=== PATIENT | male | born 1950 | race Caucasian/White ===

== ENCOUNTER 2023-12-26 23:32 | Inpatient (IN) | payer MEDICARE, BC ==
[~2023-12-26] VITALS: Ht 175.3 cm; Wt 111.8 kg
[~2023-12-26 23:32] MED LIST: ANTIVERT 25MG25 MG PO; APIDRA100 U/ML SC; ASPI325T6 PO; ASPIRIN 32325 MG/TAB PO; ASPIRIN 81M81 MG/TA2 PO; AVANDIA4 MG PO; B-121000 MCG PO; BENICAR40 MG PO; CARDURA 8MG TAB8 MG PO; CELEBREX 200MG200 MG PO; CEPHALEXIN500 M1 PO; COREG 25MG25 MG/TAB PO; COZAAR 50MG50 MG/TAB PO; COZAAR100 MG PO; GLIMEPIRIDE4 MG PO; HCTZ 25MG25 MG PO; HYGROTON 2525 MG/TAB PO; INSULIN AS100 UNIT/2 SQ; JANUMET 1000 MG1 TAB; K-DUR20 MEQ PO; K-TAB20 PO; LANTUS SOLOS100 U/ML SC; LASIX 20MG TABL20 MG PO; LEADER NATUR1000 MCG PO; LEVEMIR100 U/ML SQ; LEVIMIR; LIPITOR20 MG PO; METFORMIN1000 MG PO; MOBIC15 MG PO; NEURONTIN600 MG/TAB PO; NORCO 325 MG-7.1 TAB PO; NORVASC 10MG10 MG PO; NOVOLIN N100 U/ML SQ; NOVOLIN R100 U/ML SQ; OZEMPIC1 MG/0.71 SQ; ROXICODONE 55 MG/TAB PO; SENOKOT S 50 MG1 TAB PO; TRICOR145 MG PO; TYLENOL 500MG500 MG PO; VITAMIN D31000 I1 PO; ZETIA10 MG PO; vitamin d3
[2023-12-26 23:52] LABS: BASO # 0.1 K/mm3 (0.0-0.2); BASO % 0.7 % (0.0-2.0); EOS # 0.1 K/mm3 (0.0-0.7); EOS % 1.2 % (0.0-4.0); GRAN # 4.1 K/mm3 (1.4-6.5); GRAN % 55.5 % (42.2-75.2); HEMATOCRIT 42.1 % (42.0-52.0); HEMOGLOBIN 14.4 g/dl (13.5-18.0); LYMPH # 2.6 K/mm3 (1.2-3.4); LYMPH % 35.5 % (20.0-51.0); MEAN CELL VOLUME 87 fl (80.0-100.0); MEAN CORPUSCULAR HEMOGLOBIN 30 pg (27-31); MEAN CORPUSCULAR HGB CONC 34 g/dl (33.0-37.0); MONO # 0.5 K/mm3 (0.1-0.6); MONO % 6.6 % (1.7-9.3); PLATELET COUNT 166 K/mm3 (130-400); RED BLOOD COUNT 4.83 M/mm3 (4.20-5.60); REDCELL DISTRIBUTION WIDTH-CV 13.7 % (11.5-14.5)
[2023-12-27] VITALS (291 sets, daily range): BP systolic 114–167; BP diastolic 61–90; PULSE 52–68; TEMP 97.8–98.5; O2SAT 83–100
[2023-12-27 00:38] LABS: PH 6.5 (5.0-8.5); URINE APPEARANCE CLEAR (CLEAR/HAZY); URINE BLOOD NEGATIVE (NEGATIVE); URINE COLOR YELLOW (YELLOW); URINE GLUCOSE 3+ (NEGATIVE); URINE KETONE 1+ (NEGATIVE); URINE NITRATE NEGATIVE (NEGATIVE); URINE PROTEIN(semi-quant) 2+ (NEGATIVE); URINE UROBILINOGEN 0.2 E.U/dL (0.2-1.0)
[2023-12-27 00:45] LABS: TRICYCLIC ANTIDEPRESS URINE NEGATIVE (NEGATIVE)
[2023-12-27 00:46] LABS: ALANINE AMINOTRANSFERASE 30 U/L (0-55); ALBUMIN 3.1 g/dL (3.4-4.8); ALKALINE PHOSPHATASE 154 U/L (40-150); ANION GAP 14 mmol/L (7-16); AST,SGOT 24 U/L (5-34); BILIRUBIN,TOTAL 0.5 mg/dL (0.2-1.2); BLOOD UREA NITROGEN 14 mg/dL (8-26); CALCIUM 9.4 mg/dL (8.4-10.2); CHLORIDE 104 mEq/L (98-107); CREATININE, serum 1.16 mg/dL (0.72-1.25); POTASSIUM 3.8 mEq/L (3.5-4.5); SODIUM 139 mEq/L (136-145); TOTAL PROTEIN 6.2 g/dl (6.2-8.1)
[2023-12-27 00:49] LABS: COLLECTION METHOD CLEAN CATCH
[2023-12-27 00:50] LABS: GLUCOSE 506 mg/dL (70-99)
[2023-12-27 00:58] LABS: TROPONIN-I 0.131 ng/mL (0.00-0.033)
[2023-12-27] MEDS ORDERED: Carvedilol 25 MG TAB PO ONE (01:00)
[2023-12-27 01:25] LABS: ALCOHOL(ethanol),MEDICAL < 10 mg/dL (0-10); SALICYLATE < 5.0 mg/dL (15.0-30.0)
[2023-12-27] MEDS ORDERED: Insulin Regular Human (NovoLIN R/HumuLIN R) IV ONE (01:30)
[2023-12-27] MEDS ORDERED: INSULIN AS100 UNIT/3 (02:03)
[2023-12-27] MEDS ORDERED: LIPITOR20 MG PO (02:05)
[2023-12-27] MEDS ORDERED: LANTUS SOLOS100 U/ML SQ ×2 (02:06→02:18)
[2023-12-27] MEDS ORDERED: NEURONTIN600 MG/TAB PO (02:07)
[2023-12-27] MEDS ORDERED: CARDURA 8MG TAB8 MG PO (02:09)
[2023-12-27] MEDS ORDERED: COZAAR100 MG PO (02:15)
[2023-12-27] MEDS ORDERED: ASPIRIN 32325 MG/TAB PO (02:18)
[2023-12-27] MEDS ORDERED: Acetaminophen 325 MG TAB PO PRN (03:30)
[2023-12-27] MEDS ORDERED: Glucagon 1 MG VIAL IM PRN (04:00)
[2023-12-27] MEDS ORDERED: Dextrose 50% Water 25 GM/50 ML SYRINGE IV PRN (04:00)
[2023-12-27] MEDS ORDERED: Insulin Lispro (HumaLOG) SQ SCH ×2 (04:00→05:04)
[2023-12-27] MEDS ORDERED: Dextrose (Glucose) 15 GM (4 x 3.75 GM) Chewable TABLET PACK PO PRN (04:00)
[2023-12-27] MEDS ORDERED: Heparin 5,000 UNITS/ML 1 ML VIAL IV PRN (04:15)
[2023-12-27] MEDS ORDERED: Heparin/D5W 250 ML IV SCH (04:15)
[2023-12-27] MEDS ORDERED: Heparin 5,000 UNITS/ML 1 ML VIAL IV ONE (04:15)
[2023-12-27 04:48] LABS: INR 1.1 (0.8-3.0); PROTHROMBIN TIME 11.5 SECONDS (9.7-12.8)
[2023-12-27 04:51] LABS: PARTIAL THROMBOPLASTIN TIME 33.9 SECONDS (26.0-37.0)
[2023-12-27] MEDS ORDERED: Carvedilol 6.25 MG TAB PO SCH (08:00)
[2023-12-27] MEDS ORDERED: Influenza Virus Vaccine, Hi-Dose Triv '24-25 (65 YR+) 0.5 ML SYRINGE IM SCH (09:00)
[2023-12-27] MEDS ORDERED: Insulin Glargine-ygfn (Lantus) SQ SCH ×3 (09:00→12:00)
[2023-12-27] MEDS ORDERED: Gabapentin 300 MG CAP PO SCH (09:00)
--- NOTE | 2023-12-27 09:08 | NUR ---
PT DENIES WANTING TO HARM HIMSELF AT THIS TIME.
--- NOTE | 2023-12-27 10:30 | NUR ---
REPORT GIVEN TO MIRIAM PEREZ ON MEDICAL FLOOR. PT TRANSPORTED VIA WHEELCHAIR TO MEDICAL ROOM 357 WITH ASSISTANCE OF PCT. PT AWARE OF POC, STATES NO QUESTIONS OR CONCERNS. HAS NOT HAD ANY CHEST PAIN OR SHORTNESS OF BREATH SINCE ADMISSION.
--- NOTE | 2023-12-27 10:42 | NUR ---
BULK FLUIDS HANDLER met with pt bedside while he was in the ICU.Pt was transfered to the floor shortly after assessment. Pt confirms PCP is Khanh Mehta and uses [facility] for pharmacy. Pt states he does have a DPOA that states jacob Cast [phone]. Pt stated he was having difficulty getting around his home so he moved to the basement of the home with no stairs and his son and his family moved in upstairs. Pt stated that he bought a car for each of his grandkids with the stipulation being they have to each provide atleast an hour a day helping him get to appointments and help with cares. Pt states that does not happen. Even though family lives upstairs, they are not an active participant in his cares. Pt reports he has has a few falls but never resulting in an injury. Pt reports he has a cane, 4 walkers, and 2 wheelchairs. BULK FLUIDS HANDLER inquired about pt physically capabilities within the home. Pt reports that he does have difficulties in the home and cannot walk very well at all. Pt states that he uses a bedside urinal at night to use the restroom but BULK FLUIDS HANDLER questions if pt can get to the restroom by himself at all. Pt reports that he is too scared to shower so he does not bathe himself at all. Pt feels like he will fall and it is too unsafe and family at home does not help. Pt reports he also wouldn't want his grandkids to have to help him shower either. Pt states he had HH after his back surgery and he did go to rehab after but he cannot remember where. PT was walking in the room to evaluate pt as BULK FLUIDS HANDLER was leaving. BULK FLUIDS HANDLER discussed rehab options to see if pt would be open to going somewhere after hospitalization. Pt is open to all rehab options as he also feels he may not be safe at home. Pt denied any concerns for physical, emotional, or financial abuse and states he does feel safe at home. D/C: SNF or IPR with HH after stay.
[2023-12-27] MEDS ORDERED: Carvedilol 25 MG TAB PO SCH ×2 (17:00)
--- NOTE | 2023-12-27 20:00 | NUR ---
Assessment complete. A&Ox3. Denies pain/nausea/shortness of breath. VS stable. Sitter is at bedside. TELE reporting SB. Left hand IV with heparin at 10ml/hr infusing without difficulty. Plan of care discussed for this shift to include meds/pain control/VS/NPO at 0000. Verbalizes understanding. Call light in reach. will monitor.
[2023-12-27] MEDS ORDERED: Atorvastatin 20 MG TAB PO SCH (21:00)
[2023-12-27] MEDS ORDERED: Losartan 50 MG TAB PO SCH (21:00)
[2023-12-27] MEDS ORDERED: Aspirin 325 MG TAB PO SCH (21:00)
[2023-12-27] MEDS ORDERED: guaiFENesin ER 600 MG **** subs to guaiFENesin 200 MG PO SCH (21:33)
--- NOTE | 2023-12-27 21:45 | NUR ---
Patient requesting something for congestion. Spoke with Sudha, REHABILITATION THERAPY AIDE-new orders received and initated.
[2023-12-28] VITALS (19 sets, daily range): BP systolic 110–165; BP diastolic 43–83; PULSE 52–64; TEMP 97.8–98.4
--- NOTE | 2023-12-28 05:18 | NUR ---
Patient had an uneventful night. Denied pain/nausea/shortness of breath. VS stable. Currently is 1:1 with a sitter due to SI. Denies current SI. Heparin gtt is infusing at 1000 units to left hand IV. Has remained NPO since 0000 for cards consult/cards eval. Will continue to monitor.
[2023-12-28 05:59] LABS: BASO # 0.1 K/mm3 (0.0-0.2); BASO % 0.6 % (0.0-2.0); EOS # 0.2 K/mm3 (0.0-0.7); EOS % 2.8 % (0.0-4.0); GRAN # 4.8 K/mm3 (1.4-6.5); GRAN % 61.4 % (42.2-75.2); HEMOGLOBIN 12.6 g/dl (13.5-18.0); LYMPH # 2.1 K/mm3 (1.2-3.4); LYMPH % 26.7 % (20.0-51.0); MEAN CELL VOLUME 85 fl (80.0-100.0); MEAN CORPUSCULAR HEMOGLOBIN 29 pg (27-31); MEAN CORPUSCULAR HGB CONC 35 g/dl (33.0-37.0); MEAN PLATELET VOLUME 9.6 fl (7.4-10.4); MONO # 0.6 K/mm3 (0.1-0.6); PLATELET COUNT 133 K/mm3 (130-400)
[2023-12-28 06:01] LABS: HEMATOCRIT 36.4 % (42.0-52.0)
[2023-12-28 06:29] LABS: CALCIUM 8.8 mg/dL (8.4-10.2); CREATININE, serum 0.81 mg/dL (0.72-1.25); POTASSIUM 3.4 mEq/L (3.5-4.5)
--- NOTE | 2023-12-28 06:53 | NUR ---
Critical troponin of 2.971 called to JAY Haley. No new orders received at this time. Bedside report given to MIRIAM Akhtar.
--- NOTE | 2023-12-28 09:25 | NUR ---
pt a&ox4 resting in bed. vss and tele in place. meds given with sips of water otherwise patient is NPO for cardiology consult. heparin gtt infusing into left hand IV at 9. suicide precautions in place with 1:1 sitter. pt denies needs at this time. call light in reach.
[2023-12-28] MEDS ORDERED: *Potassium Replacement Protocol MC SCH (09:30)
[2023-12-28] MEDS ORDERED: Clopidogrel 300 MG DOSE (75 mg x 4 tabs) PO ONE (10:00)
--- NOTE | 2023-12-28 12:45 | NUR ---
awake and watching TV, GRAYSON Garrido at bedside, nedside shift report received from MIRIAM Figueroa
--- NOTE | 2023-12-28 13:32 | NUR ---
resting in bed watching TV, INTERPERSONAL COMMUNICATIONS PROFESSOR at bedside, full assessment completed, see interventions for further info, denies needs
--- NOTE | 2023-12-28 13:48 | NUR ---
workers compensation coordinator notes pt is reccomended for post-acute rehab and also has a sitter due to suicidial ideations. ASHLEY spoke with Dr. Chau during rounding who reports pt is not medically cleared, then will get screened by [facility]. ASHLEY met with pt to provide Medicare.gov lists of SNF vs IPR. He was taken aback by the hours required for IPR and did not voice interest. He was agreeable to SNF beginning in [place]. ASHLEY emailed referrals to [facility], and [facility]. Discharge Plan: [facility] screen once cleared
--- NOTE | 2023-12-28 15:12 | NUR ---
visiting with friends, DRIVE IN THEATER ATTENDANT at bedside
--- NOTE | 2023-12-28 16:01 | NUR ---
geophysical laboratory director nurse here to take pateint for procedure, report given to nurse that he is on suicide watch and not to be left alone and to be watched at all times, she verbalizes understanding, heparin drip stopped at this time
--- NOTE | 2023-12-28 16:48 | NUR ---
remains off the unit and in the cathode ray tube salvage processor
[2023-12-28] MEDS ORDERED: Bivalirudin 250 MG in NS 50 ML IV SCH (17:49)
[2023-12-28] MEDS ORDERED: Midazolam 2 MG/2 ML VIAL IV SCH (17:50)
[2023-12-28] MEDS ORDERED: fentaNYL 50 MCG/ML 2 ML VIAL IV SCH (17:51)
[2023-12-28] MEDS ORDERED: Iohexol 350 - 100 ML VIAL INCOR ONE (17:52)
[2023-12-28] MEDS ORDERED: niCARdipine (Cath Lab) 100 MCG/ML 10 ML VIAL INCOR SCH (17:53)
[2023-12-28] MEDS ORDERED: Furosemide 40 MG/4 ML VIAL IV SCH (18:00)
--- NOTE | 2023-12-28 18:00 | NUR ---
remains off the floor and in the pharmaceutical laboratory technician
--- NOTE | 2023-12-28 18:20 | NUR ---
Guera was transferred back to medical rm 357 after LHC with JAYJAY to LAD with DR. Berkowitz. He is awake and alert, pwd with reg and unlabored respirations. dressing to rt groin is clean and dry, area is soft. cms intact distal. BS report and handoff of care to Wilma PINEDA.
[2023-12-28] MEDS ORDERED: 1/2 NS 1,000 ML IV SCH (18:30)
--- NOTE | 2023-12-28 18:30 | NUR ---
returned to room per bed from shift lab technician, awake and alert, IV infusing and placed on pump at 100ml/hr, angioseal to right stephania inplace and site is soft and no bruising noted, good pedal pulses, assisted him with ordering supper, and ESCROW MANAGER at bedside, orders reviewed with shift lab technician nurse, patient denies needs at this time
--- NOTE | 2023-12-28 19:03 | NUR ---
bedside shift report given to felix Marks was ordered, CANE PACKER at bedside,
--- NOTE | 2023-12-28 19:45 | NUR ---
Initial shift assessment done- denies pain, denies SOB, VSS, does have 1:1 sitter at bedside for suicide precautions, pt alert/oriented x4, pleasant, right groin site with femstop, dry and intact- no oozing/bleeding, site soft/no hematoma. 5cc of air removed at this time with no bleeding/oozing- pt watching TV , did have some crackers with peanut butter as a snack tonight,, using the urinal and voiding good amounts yellow urine.
--- NOTE | 2023-12-28 22:30 | NUR ---
Up to bathroom with assist, tolerated well, right groin femstop in place, no bleeding/dry and intact when back to bed, soft, no hematoma. Air has slowly been released every hour - no issues with oozing or bleeding
[2023-12-29] VITALS (13 sets, daily range): BP systolic 103–158; BP diastolic 44–85; PULSE 53–61; TEMP 97.6–98.2
--- NOTE | 2023-12-29 05:51 | NUR ---
Denies pain, Femstop removed and replaced with a gauze and tegaderm to right groin-- no oozing/bleeding- site soft with no hematoma. Pt did not get alot of sleep just due to interruptions throughout the night-- has the 1:1 sitter in the room at all times, VSS, Continues to get the IV fluids of NS at 100cc/hr.voiding good amounts of fluids-
[2023-12-29] MEDS ORDERED: Furosemide 40 MG/4 ML VIAL IV ONE ×2 (07:00→17:00)
[2023-12-29 08:29] LABS: BASO % 0.5 % (0.0-2.0); EOS # 0.2 K/mm3 (0.0-0.7); EOS % 2.3 % (0.0-4.0); GRAN # 5.3 K/mm3 (1.4-6.5); GRAN % 68.4 % (42.2-75.2); HEMATOCRIT 38.3 % (42.0-52.0); HEMOGLOBIN 12.8 g/dl (13.5-18.0); LYMPH # 1.5 K/mm3 (1.2-3.4); LYMPH % 19.1 % (20.0-51.0); MEAN CELL VOLUME 86 fl (80.0-100.0); MEAN CORPUSCULAR HEMOGLOBIN 29 pg (27-31); MEAN CORPUSCULAR HGB CONC 33 g/dl (33.0-37.0); MEAN PLATELET VOLUME 9.6 fl (7.4-10.4); MONO # 0.7 K/mm3 (0.1-0.6); MONO % 9.2 % (1.7-9.3); PLATELET COUNT 131 K/mm3 (130-400); RED BLOOD COUNT 4.47 M/mm3 (4.20-5.60); REDCELL DISTRIBUTION WIDTH-CV 14.2 % (11.5-14.5)
[2023-12-29 08:45] LABS: CALCIUM 8.7 mg/dL (8.4-10.2); CREATININE, serum 0.97 mg/dL (0.72-1.25); MAGNESIUM 1.6 mg/dL (1.6-2.6); POTASSIUM 3.5 mEq/L (3.5-4.5)
[2023-12-29] MEDS ORDERED: Clopidogrel 75 MG TAB PO SCH (09:00)
[2023-12-29] MEDS ORDERED: Magnesium Sulfate 2 GM/50 ML IV SOLN IV SCH (10:00)
[2023-12-29] MEDS ORDERED: Insulin Lispro (HumaLOG) SQ SCH (12:00)
--- NOTE | 2023-12-29 13:03 | NUR ---
electrical lineworker was informed [facility] declines pt. ASHLEY spoke with [facility] who is still reviewing. ASHLEY Wells emailed updates to [facility]. ASHLEY Hernández & Nelly obtained further options for pt who wanted [facility]. ASHLEY Hernández faxed referral. ASHLEY attended clinical rounding and was informed pt is medically cleared. ASHLEY faxed clinicals and clearance to [facility]. ASHLEY was later informed by MIRIAM Dietrich that he is cleared and will utilize outpatient services. RN reports that [facility] reccomends pt remove his guns, but he was not super interested in this option. ASHLEY left a voicemail to sonPeter [phone] to discuss reccomendations from [facility]. Discharge Plan: SNF
--- NOTE | 2023-12-29 15:29 | NUR ---
PSYCH SCREEN COMPLETE. PATIENT PROVIDED WITH INFORMATION FAXED FROM [facility]. VORB TO D/C 1:[address] MEDINA. PATIENT UNDERSTANDING.
--- NOTE | 2023-12-29 20:30 | NUR ---
Initial shift assessment done- denies pain at this time, right groin site soft/no hematoma, no bleeding. tele on, does not want scd,s on at this time, using urinal to void,, hoping to get some sleep tonight since he did not get much last night! very pleasant/watching TV.
[2023-12-30] VITALS (12 sets, daily range): BP systolic 118–178; BP diastolic 64–77; PULSE 46–55; TEMP 97.5–98.3
--- NOTE | 2023-12-30 05:56 | NUR ---
Quiet night- VSS, slept very well last night
[2023-12-30 07:02] LABS: BASO % 0.5 % (0.0-2.0); EOS # 0.2 K/mm3 (0.0-0.7); EOS % 3.4 % (0.0-4.0); GRAN # 2.8 K/mm3 (1.4-6.5); GRAN % 47.2 % (42.2-75.2); HEMATOCRIT 39.2 % (42.0-52.0); HEMOGLOBIN 13.5 g/dl (13.5-18.0); LYMPH # 2.2 K/mm3 (1.2-3.4); LYMPH % 38.1 % (20.0-51.0); MEAN CELL VOLUME 86 fl (80.0-100.0); MEAN CORPUSCULAR HEMOGLOBIN 30 pg (27-31); MEAN CORPUSCULAR HGB CONC 34 g/dl (33.0-37.0); MEAN PLATELET VOLUME 9.1 fl (7.4-10.4); MONO # 0.6 K/mm3 (0.1-0.6); MONO % 10.3 % (1.7-9.3); PLATELET COUNT 135 K/mm3 (130-400); RED BLOOD COUNT 4.58 M/mm3 (4.20-5.60)
[2023-12-30 07:29] LABS: CREATININE, serum 0.97 mg/dL (0.72-1.25); POTASSIUM 3.4 mEq/L (3.5-4.5)
[2023-12-30] MEDS ORDERED: PLAVIX 75MG TAB75 MG PO (07:38)
[2023-12-30] MEDS ORDERED: NITROSTAT0.4 MG/TAB SL (07:38)
[2023-12-30] MEDS ORDERED: ASPIRIN E.C. 8181 MG PO (07:38)
[2023-12-30] MEDS ORDERED: ALDACTONE 25MG25 M1 PO (07:38)
--- NOTE | 2023-12-30 07:38 | NUR ---
PT ATE BREAKFAST 0738 SITTING UP. PT AxOx4. PlEASANT AND COMMUNICATING WELL.
[2023-12-30] MEDS ORDERED: Spironolactone 25 MG TAB PO SCH (08:00)
[2023-12-30] MEDS ORDERED: TOPROL XL 25MG25 MG PO (09:36)
[2023-12-30] MEDS ORDERED: LASIX 40MG TABL40 MG PO (10:02)
[2023-12-30] MEDS ORDERED: Furosemide 40 MG TAB PO SCH (10:15)
--- NOTE | 2023-12-30 14:53 | NUR ---
roll on worker spoke with [facility] who delcines pt. ASHLEY emailed referral to [facility] who declined. ASHLEY left a voicemail and email to [facility] to inquire. ASHLEY spoke with [facility] of [facility] who was checking to see if they had it. ASHLEY sent referral [facility] and [facility] who both can accept pt tomorrow. ASHLEY met with pt to provide update in the morning, then later over the phone to advise no local retirement's could accept except [facility] and [facility]. He voiced frustration with this and was unsure now if he even was interested. ASHLEY mentioned the previous therapy reccs. He said he would think about it and disconnected the call. ASHLEY was informed there were not any updates from [facility] regarding their reccs. ASHLEY called to the [facility] and spoke with Chelsie who reports she will fax them. ASHLEY later spoke with MIRIAM Chacon who has not yet seen anything. ASHLEY called son, nirali to provide update on the two accepting places and how pt did not want to go out that far. ASHLEY spoke with MAYTE Aparicio who thought pt would be a good canidiate for IPR. ASHLEY advised she spoke with pt before who did not appear interested at the time due to the intensity. Discharge Plan: home w/ HH vs SNF at [facility] or [facility]
--- NOTE | 2023-12-30 16:36 | NUR ---
location worker spoke with MIRIAM Chacon who received nothing from Daniel as of late. ASHLEY called [facility] and they reported that nothing would be sent over as he "did not meet criteria to be screened, after talking with RN." ASHLEY provided this to Dr. Chau who had concerns and reports a screening was ordered. ASHLEY informed Director Indira Gould. ASHLEY called [facility] again and spoke with Irene who reports [facility] did meet with pt via Zoom and "he did not need an assessment. He was provided outpatient resources with a home health care case manager." ASHLEY informed Fashion Journalist Natasha Mckeon of this reasoning. ASHLEY requested Daniel fax their case note and this was urgently placed on chart and verbal update provided to MIRIAM Chacon, Fashion Journalist Naatsha, and Director Indira Gould. ASHLEY met with pt to discuss SNF decision. He then reports his wish to go home and would accept HH. He then reported "what if I do not want it." ASHLEY strongly reccomended this, at least temporarily. ASHLEY urged him to discuss with his son and arrange transport for d/c tomorrow. ASHLEY left a voicemail to sonPeter to provide update. Discharge Plan: home with HH-- TBD
[2023-12-30] MEDS ORDERED: Insulin Glargine-ygfn (Lantus) SQ SCH (21:00)
--- NOTE | 2023-12-30 21:15 | NUR ---
PATIENT RESTING IN BED WITH TV ON WITH NO FAMILY PRESENT WITH NO ACUTE DISTRESS NOTED. PATIENT ON ROOM AIR. INT TO LEFT HAND INTACT WITH NO COMPLICATIONS NOTED. TELEMETRY INTACT. ASSESSMENT AND MEDICATION ADMINISTRATION COMPLETED AT THIS TIME. PATIENT REQUESTED PEANUT BUTTER AND SALTINE CRACKERS ALONG WITH A CUP OF ICE. ALL GIVEN. PATIENT DENIES ANY OTHER NEEDS. BED IN LOW POSITION WITH WHEELS LOCKED WITH RAILS UP X3 AND CALL LIGHT WITHIN REACH.
[2023-12-31] VITALS (7 sets, daily range): BP systolic 116–156; BP diastolic 66–75; PULSE 49–94; TEMP 97.7–98.2
[2023-12-31 06:36] LABS: BASO % 0.4 % (0.0-2.0); EOS # 0.2 K/mm3 (0.0-0.7); EOS % 2.7 % (0.0-4.0); GRAN # 3.9 K/mm3 (1.4-6.5); GRAN % 54.2 % (42.2-75.2); HEMATOCRIT 40.3 % (42.0-52.0); HEMOGLOBIN 13.7 g/dl (13.5-18.0); LYMPH # 2.5 K/mm3 (1.2-3.4); LYMPH % 34.7 % (20.0-51.0); MEAN CELL VOLUME 86 fl (80.0-100.0); MEAN CORPUSCULAR HEMOGLOBIN 29 pg (27-31); MEAN CORPUSCULAR HGB CONC 34 g/dl (33.0-37.0); MEAN PLATELET VOLUME 9.6 fl (7.4-10.4); MONO # 0.6 K/mm3 (0.1-0.6); MONO % 7.7 % (1.7-9.3); PLATELET COUNT 153 K/mm3 (130-400); RED BLOOD COUNT 4.68 M/mm3 (4.20-5.60); REDCELL DISTRIBUTION WIDTH-CV 13.9 % (11.5-14.5)
[2023-12-31 06:46] LABS: CREATININE, serum 1.07 mg/dL (0.72-1.25); POTASSIUM 3.5 mEq/L (3.5-4.5)
--- NOTE | 2023-12-31 07:42 | NUR ---
Opening note; Obtained Shift report. Upon assessment patient was resting in bed with eyes closed, chest rising and falling. VS obtained. Shift assessment completed. Patient has INT to L hand, site is clean, no drainage, or redness. Incision to R groin has a dressing, and is clean, dry, and intact. Patient has SCDs and refuses to put the, on. BS taken by OCCUPATIONAL HEALTH TECHNICIAN. Breakfast ordered. Patient resting in bed with bed with eyes open, no visitors present at this time.
--- NOTE | 2023-12-31 09:22 | NUR ---
PATIENT SITTING UP IN CHAIR. ALERT AND ORIENTED. DENIES NEEDS OR CONCERNS AT THIS TIME. CALL LIGHT WITHIN REACH.
--- NOTE | 2023-12-31 09:52 | NUR ---
gas pit worker met with pt to follow up on HH option and provided Medicare.gov list. He chose [facility]. SW faxed referral and discharge orders. ASHLEY completed IM from Medicare with pt who signed and verbalized understanding. Copy provided and original in chart. ASHLEY attempted to reach son, Peter, but his voicemail box was full still. Discharge Plan: home with [facility]
--- NOTE | 2023-12-31 10:42 | NUR ---
THIS RN PROVIDED PATIENT WITH DISCHARGE EDUCATION AND INSTRUCTIONS. ALL QUESTIONS ANSWERED. WILL RELAY THE INFORMATION TO GRANDDAUGHTER WHEN SHE ARRIVES WELL. STUDENT NURSE WILL DISCONTINUE IV FOR DISCHARGE. DENIES FURTHER NEEDS OR CONCERNS AT THIS TIME.
--- NOTE | 2023-12-31 10:56 | NUR ---
THIS RN GAVE DISCHARGE EDUCATION AND INSTRUCTIONS TO GRANDDAUGHTER. ALL QUESTIONS ANSWERED. PATIENT CHANGING AND PACKING
--- NOTE | 2023-12-31 11:01 | NUR ---
Closing Note - Patient is alert and oriented. INT to L hand is d/c, catheter tip is intact and patient tolerated well. Patient's family is bedside. Patient is able to ambulate to bathroom and w/c. Patient's daughter is giving the patient a ride home.
--- NOTE | 2023-12-31 11:13 | NUR ---
PATIENT ESCORTED OFF UNIT VIA WC BY [facility] STUDENT NURSE. ALL BELONGINGS WITH PATIENT.
== END 2023-12-31 11:00 | disposition home or self-care (01) | DRG 322 ==
LOC: COL.ER 23:32 → ICU 12-27 01:21 → MEDICAL 12-27 01:21
PROVIDERS: Emergency Medicine; Nurse Practitioner Family; Physician Assistant; ADMIT Internal Medicine
PROC: 027034Z Dilation of Coronary Artery, One Artery with Drug-eluting Intraluminal Device, Percutaneous Approach (ICD-10-PCS; principal; 2023-12-28)
PROC: 4A023N7 Measurement of Cardiac Sampling and Pressure, Left Heart, Percutaneous Approach (ICD-10-PCS; 2023-12-28)
PROC: B2111ZZ Fluoroscopy of Multiple Coronary Arteries using Low Osmolar Contrast (ICD-10-PCS; 2023-12-28)
PROC: B2131ZZ Fluoroscopy of Multiple Coronary Artery Bypass Grafts using Low Osmolar Contrast (ICD-10-PCS; 2023-12-28)
DX: I21.4 Non-ST elevation (NSTEMI) myocardial infarction (principal); I50.20 Unspecified systolic (congestive) heart failure; I16.1 Hypertensive emergency; R45.851 Suicidal ideations; N17.9 Acute kidney failure, unspecified; E11.40 Type 2 diabetes mellitus with diabetic neuropathy, unspecified; I10 Essential (primary) hypertension; E78.5 Hyperlipidemia, unspecified; E87.6 Hypokalemia; E83.42 Hypomagnesemia; E11.65 Type 2 diabetes mellitus with hyperglycemia; N18.9 Chronic kidney disease, unspecified; E11.22 Type 2 diabetes mellitus with diabetic chronic kidney disease; I34.0 Nonrheumatic mitral (valve) insufficiency; Z79.82 Long term (current) use of aspirin; Z79.899 Other long term (current) drug therapy; Z79.02 Long term (current) use of antithrombotics/antiplatelets; Z95.5 Presence of coronary angioplasty implant and graft; Z79.4 Long term (current) use of insulin; I25.2 Old myocardial infarction; Z95.1 Presence of aortocoronary bypass graft
CPT/HCPCS: C1725; C1760; C1769; C1874; C1887; C1894; C9600; J0583; J1644; J1815; J1920; J1940; J2250; J2404; J3010; J3475; Q9967